=== PATIENT | male | born 1995 | race African-American/Black ===

== ENCOUNTER 2019-03-11 21:29 | Emergency (ER) | payer SELFPAY ==
[2019-03-11] MEDS ORDERED: ONDANSETRON 4 MG TAB.RAPDIS PO ONE (22:53)
[2019-03-11] MEDS ORDERED: NORMAL SALINE 1000 ML 1,000 ML IV ONE (22:53)
--- NOTE | 2019-03-11 22:54 | ER Document Report ---
ED Medical Screen (RME) - General Chief Complaint: Vomiting Stated Complaint: VOMITING Time Seen by Provider: 03/11/19 22:53 Mode of Arrival: Ambulatory Information source: Patient Notes: Patient presents complaining of generalized abdominal pain that started today. Patient complains of nausea and vomiting times multiple episodes. Patient does report recent alcohol use and is concerned that this may have prompted his symptoms. Patient denies any diarrhea. I have greeted and performed a rapid initial assessment of this patient. A comprehensive ED assessment and evaluation of the patient, analysis of test results and completion of the medical decision making process will be conducted by additional ED providers. - Related Data Allergies/Adverse Reactions: No Known Allergies Allergy (Verified 03/11/19 22:40) Past Medical History - Social History Frequency of alcohol use: Social Drug Abuse: None Physical Exam - Vital signs Vitals: Temp Pulse Resp BP Pulse Ox 98.1 F 91 16 136/83 H 96 03/11/19 21:36 03/11/19 21:36 03/11/19 21:36 03/11/19 21:36 03/11/19 21:36 - Abdominal Inspection: Obese Tenderness: Tender - Generalized abdomen Course - Vital Signs Vital signs: Temp Pulse Resp BP Pulse Ox 98.1 F 91 16 136/83 H 96 03/11/19 21:36 03/11/19 21:36 03/11/19 21:36 03/11/19 21:36 03/11/19 21:36
[2019-03-11 23:25] LABS: ABSOLUTE BASOPHILS # (AUTO) 0.1 10^3/uL (0.0-0.2); ABSOLUTE EOSINOPHILS # (AUTO) 0.1 10^3/uL (0.0-0.6); ABSOLUTE LYMPHOCYTES (AUTO) 2.4 10^3/uL (0.5-4.7); ABSOLUTE MONOCYTES (AUTO) 1.2 10^3/uL (0.1-1.4); ABSOLUTE NEUT (AUTO) 8.4 10^3/uL (1.7-8.2); BASOPHILS % (AUTO) 0.8 % (0-2); EOSINOPHILS % (AUTO) 1.1 % (0-6); HEMATOCRIT 46.7 % (37.9-51.0); HEMOGLOBIN 15.6 g/dL (13.5-17.0); LYMPHOCYTES % (AUTO) 19.7 % (13-45); MEAN CORPUSCULAR HGB CONC 33.3 g/dL (32.0-36.0); MEAN CORPUSCULAR VOLUME 78 fl (80-97); MONOCYTES % (AUTO) 9.6 % (3-13); PLATELET COUNT 274 10^3/uL (150-450); RED BLOOD COUNT 5.98 10^6/uL (4.35-5.55); RED CELL DISTRIBUTION WIDTH 15.3 % (11.5-14.0); SEGMENTED NEUTROPHILS % (AUTO) 68.8 % (42-78); TOTAL CELLS COUNTED % (AUTO) 100 %; WHITE BLOOD COUNT 12.3 10^3/uL (4.0-10.5)
[2019-03-11 23:42] LABS: APPEARANCE,URINE CLEAR; BILIRUBIN,URINE NEGATIVE (NEGATIVE); COLOR,URINE YELLOW; GLUCOSE, URINE NEGATIVE (NEGATIVE); KETONES,URINE NEGATIVE (NEGATIVE); LEUKOCYTE ESTERASE,URINE NEGATIVE (NEGATIVE); NITRITE,URINE NEGATIVE (NEGATIVE); PROTEIN,URINE 30 mg/dL (NEGATIVE); URINE SPECIFIC GRAVITY 1.024; UROBILINOGEN,URINE NEGATIVE mg/dL (<2.0)
[2019-03-11 23:43] LABS: ALKALINE PHOSPHATASE 129 U/L (38-126); ANION GAP 14 (5-19); ASPARTATE AMINO TRANSFERASE 31 U/L (17-59); BILIRUBIN,DIRECT 0.3 mg/dL (0.0-0.4); BILIRUBIN,TOTAL 0.7 mg/dL (0.2-1.3); BLOOD UREA NITROGEN 13 mg/dL (7-20); CALCIUM 10.2 mg/dL (8.4-10.2); CARBON DIOXIDE 27 mmol/L (22-30); CHLORIDE 102 mmol/L (98-107); GLUCOSE 109 mg/dL (75-110); TOTAL PROTEIN 8.9 g/dL (6.3-8.2)
[2019-03-12] MEDS ORDERED: ONDANSETRON 4 MG TAB.RAPDIS ONE (02:34)
[2019-03-12] MEDS: ONDANSETRON HCL INJ/PF 4 MG/2 ML SDV ONE ×2 (02:36→02:59)
[2019-03-12] MEDS ORDERED: NORMAL SALINE 1000 ML 1,000 ML IV ONE (02:51)
[2019-03-12] MEDS ORDERED: PANTOPRAZOLE SODIUM 40 MG VIAL IV ONE (02:51)
--- NOTE | 2019-03-12 02:57 | ER Document Report ---
ED General - General Chief Complaint: Vomiting Stated Complaint: VOMITING Time Seen by Provider: 03/11/19 22:53 Mode of Arrival: Ambulatory - HPI Notes: Generally healthy 23-year-old male presents with multiple episodes of vomiting after drinking alcohol heavily over the last 2 days. He has some mild ep igastric burning but otherwise no abdominal pain. He denies hematemesis or melena. He denies syncope or presyncope. Patient says he "occasionally" smokes marijuana. He smokes about 1/2 pack cigarettes per day. He denies any past surgery. He is on no long-term medications and has no known allergies. He has intermittently had some problems with GERD in the past. Denies any prior hospitalizations. No respiratory symptoms. No fever, chills or diarrhea. No headache or myalgias. He denies exposure to individuals with gastrointestinal symptoms. Patient is currently unemployed. - Related Data Allergies/Adverse Reactions: No Known Allergies Allergy (Verified 03/11/19 22:40) Past Medical History - General Information source: Patient - Social History Smoking Status: Current Every Day Smoker Frequency of alcohol use: Social Drug Abuse: Marijuana Family History: Reviewed & Not Pertinent Patient has suicidal ideation: No Patient has homicidal ideation: No Review of Systems - Review of Systems Notes: Constitutional: Negative for fever. HENT: Negative for sore throat. Eyes: Negative for visual changes. Cardiovascular: Negative for chest pain. Respiratory: Negative for shortness of breath. Gastrointestinal: As per HPI. Genitourinary: Negative for dysuria. Musculoskeletal: Negative for back pain. Skin: Negative for rash. Neurological: Negative for headaches, weakness or numbness. 10 point ROS negative except as marked above and in HPI. Physical Exam - Vital signs Vitals: Temp Pulse Resp BP Pulse Ox 98.1 F 91 16 136/83 H 96 03/11/19 21:36 03/11/19 21:36 03/11/19 21:36 03/11/19 21:36 03/11/19 21:36 - Notes Notes: GENERAL: Muscular male approximately stated age who is actively vomiting. SKIN: Good turgor no rashes. HEAD: Normocephalic atraumatic. EYES: PERRLA. EOMI. Conjunctivae and sclerae clear. EARS: CANALS AND TMS CLEAR. NOSE: CLEAR. MOUTH: Moist mucosa. Good dentition. No stridor or edema. No drooling. NECK: Supple. No masses or thyromegaly. No adenopathy. Carotids 2+ without bruits. No JVD. BACK: Symmetrical without tenderness. CHEST: Respirations unlabored. Breath sounds clear and symmetrical. HEART: Regular rhythm. No murmur gallop or rub. ABDOMEN: Soft nontender without masses, organomegaly or rebound. Bowel sounds hyperactive. No bruits. GENITALIA: Deferred. EXTREMITIES: No edema. No calf tenderness. Cap refill less than 1.5 seconds. Dorsalis pedis and posterior tibial pulses 3+ and symmetrical. NEUROLOGICAL: GCS 15. Alert and oriented x3. Normal gait. Fluent speech. Cranial nerves II through XII intact. Sensorimotor and cerebellar normal. Normal tone. PSYCHIATRIC: Appropriate affect. Course - Re-evaluation Re-evalutation: 03/12/19 02:56 Nonsurgical abdomen by exam. Chemistries and CBC are unremarkable. Urine drug screen pending. Will hydrate patient with normal saline and administer Protonix and Zofran. 03/12/19 05:33 Much better now and taking oral fluids. Wants to go home. - Vital Signs Vital signs: Temp Pulse Resp BP Pulse Ox 98.0 F 82 20 132/83 H 96 03/12/19 01:42 03/12/19 01:42 03/12/19 01:42 03/12/19 01:42 03/12/19 01:42 - Laboratory Result Diagrams: 03/11/19 23:00 03/11/19 23:00 Laboratory results interpreted by me: 03/11/19 03/11/19 03/11/19 23:00 23:00 23:00 WBC 12.3 H RBC 5.98 H MCV 78 L MCH 26.0 L RDW 15.3 H Absolute Neuts (auto) 8.4 H Alkaline Phosphatase 129 H Total Protein 8.9 H Urine Protein 30 H Discharge - Discharge Clinical Impression: Acute gastritis Condition: Stable Disposition: HOME, SELF-CARE Additional Instructions: Gastritis You have an inflammation of the stomach called gastritis. This commonly causes upper abdominal pain, nausea, and vomiting. In severe cases, bleeding of the stomach lining can occur. Gastritis can be caused by bacteria or viruses, alcohol, or stomach-irritating drugs. Begin with sips of clear liquids. Take increasing amounts of fluid over the first 24 hours. Then start small amounts of bland foods (such as dry toast, applesauce, mashed potato). Gradually resume your usual diet. You should take antacids every two hours until the pain has subsided. Acid-suppressing drugs may be prescribed as well. Avoid aspirin, caffeine, tobacco, and alcohol. If the abdominal pain worsens, or there is evidence of major bleeding in the stomach (such as black, tarry stool, bloody or black vomit, or lightheadedness), you should return immediately. Call the doctor if you aren't improved in 24 to 36 hours. Return here as needed for new or worsening symptoms: Pain that is worsening or unimproved Uncontrolled vomiting High fever or shaking chills Overall worsening Prescriptions: Pantoprazole Sodium [Protonix] 40 mg PO DAILY #12 tablet. Ondansetron [Zofran Odt 4 mg Tablet] 1 - 2 tab PO Q4H PRN #15 tab.rapdis PRN Reason: For Nausea/Vomiting Referrals: [facility] [Provider Group] - Follow up as needed
[2019-03-12 03:40] LABS: URINE AMPHETAMINES SCREEN NEGATIVE; URINE BARBITURATES SCREEN NEGATIVE; URINE BENZODIAZEPINES SCREEN NEGATIVE; URINE COCAINE SCREEN NEGATIVE; URINE METHADONE SCREEN NEGATIVE; URINE PHENCYCLIDINE SCREEN NEGATIVE
[2019-03-12 03:41] LABS: URINE MARIJUANA (THC) SCREEN UNCONFIRMED POSITIVE
[2019-03-12 05:55] VITALS: BP 128/78
== END 2019-03-12 05:54 | disposition home or self-care (01) ==
LOC: ER 21:29
DX: K29.00 Acute gastritis without bleeding (principal); R11.10 Vomiting, unspecified; F17.210 Nicotine dependence, cigarettes, uncomplicated; F12.10 Cannabis abuse, uncomplicated
CPT/HCPCS: 99283; 96361; 96374; 36415; 83690; 85025; 80053; 81001; 80307; C9113; J7030